=== PATIENT | male | born 1950 | race Caucasian/White ===

== ENCOUNTER 2022-05-20 09:33 | Emergency (ER) | payer OTHER, MEDICAID ==
[~2022-05-20] VITALS: Ht 165.1 cm; Wt 90.7 kg
[~2022-05-20 09:33] MED LIST: ATI.5 PO; DIVA500T1 PO; FINA5TAB1 PO; LEVO0.124 PO; LOSA100T1 PO; RISP0.5T3 PO; TAMS0.4C97 PO; TEMA15CA24 PO
[2022-05-20 09:48] VITALS: BP 100/63
[2022-05-20] MEDS ORDERED: FAMOTIDINE 20 MG/2 ML VIAL IVP ONE (13:15)
[2022-05-20] MEDS ORDERED: NACL 0.9% 1,000 ML IV ONE (13:15)
[2022-05-20 13:56] LABS: BASOPHILS % (AUTO) 0.3 % (0.0-2.0); HEMATOCRIT 33.1 % (36-52); HEMOGLOBIN 10.7 g/dL (12.0-18.0); LYMPHOCYTES # (AUTO) 2.2 K/uL (2.0-11.5); LYMPHOCYTES % (AUTO) 15.4 % (20.5-51.1); MEAN CORPUSCULAR HEMOGLOBIN 27 pg (27-31); MEAN CORPUSCULAR HGB CONC 32 g/dL (33-37); MEAN CORPUSCULAR VOLUME 84.7 fL (80-94); MONOCYTES # (AUTO) 1.2 K/uL (0.8-1.0); MONOCYTES % (AUTO) 8.3 % (1.7-9.3); NEUTROPHILS # (AUTO) 10.7 K/uL (1.8-7.7); PLATELET COUNT (AUTO) 196 K/uL (140-450); RED BLOOD CELL COUNT(AUTO) 3.91 MIL/uL (4.20-6.10); WHITE BLOOD COUNT (AUTO) 14.1 K/uL (4.8-10.8)
[2022-05-20 15:30] LABS: ALBUMIN 2.6 g/dL (3.4-5.0); ANION GAP 14.8 (8-16); CARBON DIOXIDE 27.6 mmol/L (21-32); CREATININE 1.3 mg/dL (0.6-1.3); POTASSIUM 5.4 mmol/L (3.5-5.1); TOTAL BILIRUBIN 0.2 mg/dL (0.0-1.0)
[2022-05-20] MEDS ORDERED: FAMO-90 PO (15:46)
[2022-05-20] MEDS ORDERED: PANT40EC PO (15:46)
[2022-05-20] MEDS ORDERED: ONDA-188 PO (15:46)
[2022-05-20 16:19] VITALS: BP 104/67
--- NOTE | 2022-05-20 16:20 | NUR ---
Patient discharged with v/s stable. Written and verbal after care instructions given and explained. Patient verbalized understanding. Wheel Chair Assisted. All questions addressed prior to discharge. Advised to follow up with PMD.
== END 2022-05-20 16:20 | disposition home or self-care (01) ==
LOC: MED 09:33
DX: R11.10 Vomiting, unspecified (principal); D64.9 Anemia, unspecified; E11.9 Type 2 diabetes mellitus without complications; K21.9 Gastro-esophageal reflux disease without esophagitis; I10 Essential (primary) hypertension; Z86.73 Personal history of transient ischemic attack (TIA), and cerebral infarction without residual deficits; Z79.899 Other long term (current) drug therapy
CPT/HCPCS: 36415; 71045; 80053; 85025; 86886; 86900; 86901; 93005; 96361; 96374; 99285; J3490; J7030